=== PATIENT | female | born 1990 | race Two or more races ===

== ENCOUNTER 2023-01-24 09:19 | Outpatient (CLI) | payer OTHER | END 2023-01-24 09:31 | disposition home or self-care (01) | LOC: RX STUDY 09:19 | PROVIDERS: ATTEND Obstetrics & Gynecology | DX: N97.9 Female infertility, unspecified (principal); N93.8 Other specified abnormal uterine and vaginal bleeding ==

== ENCOUNTER 2023-04-17 05:32 | Day surgery (SDC) | payer OTHER ==
[2023-04-10 10:29] LABS: HEMATOCRIT 41.2 % (36.0-45.00); MEAN CELL VOLUME 95.2 fL (80.00-100.00); MEAN CORPUSCULAR HEMOGLOBIN 32.3 pg (27.00-32.0); MEAN CORPUSCULAR HGB CONC 33.9 g/dl (32.0-36.0); PLATELET COUNT 147 K/uL (150-450); RED BLOOD COUNT 4.33 M/uL (4.00-6.00); RED CELL DISTRIBUTION WIDTH 12.1 % (11.5-14.5)
[2023-04-10 10:54] LABS: URINE APPEARANCE Clear; URINE BILIRRUBIN Negative (NEGATIVE); URINE BLOOD Negative; URINE COLOR Yellow; URINE GLUCOSE Negative (NEGATIVE); URINE LEUKOCYTE Negative; URINE NITRATE Negative; URINE PROTEIN Negative (NEGATIVE); URINE UROBILINOGEN 0.2 E.U./dl
[2023-04-10 10:58] LABS: URINE BACTERIA 314.9 uL (0.0-1933); URINE EPITHELIAL CELLS 2.3 uL (0.0-38.8); URINE RBC 2.2 uL (0.0-20.8)
[2023-04-10 11:05] LABS: INR 1.07; PARTIAL THROMBOPLASTIN TIME 28.7 SECONDS (22.0-34.0); PROTHROMBIN TIME 11.2 SECONDS (9.0-11.5)
[2023-04-10 11:12] LABS: ALBUMIN 3.8 gm/dL (3.4-5.0); BILIRUBIN TOTAL 0.64 mg/dL (0.3-1.2); CALCIUM 9.1 mg/dL (8.5-10.1); CREATININE SERUM 0.75 mg/dL (0.55-1.02); GFR 90.13; GLOBULINA 3.5 G/DL (2.4-3.5); POTASSIUM 3.94 mEq/L (3.5-5.1); TOTAL PROTEIN 7.3 gm/dL (6.4-8.2)
[~2023-04-17 05:32] MED LIST: MULTIVITAMINS1 EAC1 PO
[2023-04-17] MEDS ORDERED: CEFOXITIN SODIUM 2,000 MG VIAL IV ONE (06:57)
[2023-04-17] MEDS ORDERED: METHYLENE BLUE 10MG/ML 10 ML AMPUL IV ONE (09:15)
[2023-04-17] MEDS ORDERED: CEFAZOLIN SODIUM 1,000 MG VIAL IV ONE (09:15)
[2023-04-17] MEDS ORDERED: MORPHINE SULFATE 4 MG/ML VIAL IV PRN (10:45)
[2023-04-17] MEDS ORDERED: PROMETHAZINE HCL 50 MG/ML AMPUL IM ONE (10:45)
[2023-04-17] MEDS ORDERED: PROMETHAZINE HCL 50 MG/ML AMPUL ONE (11:25)
== END 2023-04-17 12:25 | disposition home or self-care (01) ==
LOC: CIR.AMB 05:32
PROVIDERS: ATTEND Obstetrics & Gynecology
DX: N97.9 Female infertility, unspecified (principal); R10.2 Pelvic and perineal pain; N70.11 Chronic salpingitis; Z91.013 Allergy to seafood; Z91.041 Radiographic dye allergy status